=== PATIENT | female | born 1995 | race Caucasian/White ===

== ENCOUNTER 2019-06-18 01:36 | Inpatient (IN) ==
[2019-06-18 02:07] LABS: URINE SOURCE VOIDED
[2019-06-18 02:08] LABS: BILIRUBIN URINE NEGATIVE (NEGATIVE); BLOOD URINE 3+ (NEGATIVE); CLARITY CLEAR (CLEAR); COLOR YELLOW; GLUCOSE URINE NEGATIVE (NEGATIVE); KETONE URINE TRACE mg/dL (NEGATIVE); LEUKOCYTES URINE 2+ (NEGATIVE); NITRITE URINE NEGATIVE (NEGATIVE); PROTEIN URINE TRACE mg/dL (NEGATIVE); UROBILINOGEN URINE NORMAL
[2019-06-18 02:28] LABS: UR AMPHETAMINES QUAL NONE DETECTED (NONE DETECT); UR BARBITUATES QUAL NONE DETECTED (NONE DETECT); UR BENZODIAZEPIN QUAL NONE DETECTED (NONE DETECT); UR CANNABINOIDS QUAL NONE DETECTED (NONE DETECT); UR COCAINE QUAL NONE DETECTED (NONE DETECT); UR METHADONE QUAL NONE DETECTED (NONE DETECT); UR METHAMPHETAMINE QUAL NONE DETECTED (NONE DETECT); UR OPIATES QUAL NONE DETECTED (NONE DETECT); UR OXYCODONE QUAL NONE DETECTED (NONE DETECT); UR PCP QUAL NONE DETECTED (NONE DETECT); UR PROPOXYPHENE QUAL NONE DETECTED (NONE DETECT); UR TCA QUAL NONE DETECTED (NONE DETECT)
[2019-06-18] MEDS ORDERED: FENTANYL IV ONE (03:37)
[2019-06-18] MEDS ORDERED: LR 1,000 ML IV SCH ×2 (03:45→07:00)
[2019-06-18] MEDS ORDERED: NUBAIN IV ONE (05:05)
[2019-06-18 06:25] LABS: BASO# 0.03 X1000 (0.0-0.2); BASO% 0.2 % (0.0-0.8); EOS# 0.07 X1000 (0.0-0.7); EOS% 0.5 % (0.0-10.0); HEMATOCRIT 33.3 % (37.0-47.0); HEMOGLOBIN 10.9 g/dL (12.0-16.0); IMM GRAN% 0.7 % (0.0-0.5); LYMPH% 19.3 % (20.5-51.1); MCH 27.2 PG (27-31); MCHC 32.7 g/dL (33-37); MONO# 0.97 X1000 (0.11-0.59); MONO% 6.5 % (1.7-9.3); MPV 12.4 FL (7.4-10.4); NEUT# 10.96 X1000 (1.4-6.5); NEUT% 72.8 % (42.2-75.2); PLT 124 X1000 (130-400); RBC 4.01 XMIL (4.2-5.4); RDW 14.2 % (11.5-14.5); WBC 15.03 X1000 (4.8-10.8)
[2019-06-18] MEDS ORDERED: REGLAN PO ONE (06:55)
[2019-06-18] MEDS ORDERED: PEPCID PO ONE (06:55)
[2019-06-18] MEDS ORDERED: PEPCID PO PRN (06:55)
[2019-06-18] MEDS ORDERED: TYLENOL PO PRN (06:55)
[2019-06-18] MEDS ORDERED: KEFZOL 1 GM/D5W 1 GM/50 ML IVPB IV PRN (06:55)
[2019-06-18] MEDS ORDERED: PEPCID IV PRN (06:55)
[2019-06-18] MEDS ORDERED: STADOL IV PRN (06:55)
[2019-06-18] MEDS ORDERED: ZOFRAN IV PRN (06:55)
[2019-06-18] MEDS ORDERED: SODIUM CHLORIDE 0.9% INJ SCH (07:00)
[2019-06-18] MEDS ORDERED: FENTANYL IV PRN (07:03)
[2019-06-18] MEDS ORDERED: MINERAL OIL MISC ONE (07:11)
[2019-06-18] MEDS ORDERED: XYLOCAINE-MPF 1% INJ ONE (07:11)
[2019-06-18] MEDS ORDERED: MARCAINE 0.25% PF INJ ONE ×2 (07:15)
[2019-06-18] MEDS: PITOCIN 30 UNITS/NS 30 UNIT/500 ML IV.SOLN IV SCH ×2 (07:42→09:25)
[2019-06-18] MEDS ORDERED: FENTANYL-BUPIV-NS 2 MCG-0.1% 250 ML EPIDURAL SCH ×2 (08:00)
[2019-06-18] MEDS ORDERED: PITOCIN 20 UNITS/NS 20 UNITS/1,000 ML IV.SOLN ONE (12:36)
[2019-06-18] MEDS ORDERED: BENADRYL IV PRN (12:46)
[2019-06-18] MEDS ORDERED: PITOCIN IM PRN (12:46)
[2019-06-18] MEDS ORDERED: BENADRYL PO PRN (12:46)
[2019-06-18] MEDS ORDERED: CYTOTEC PO PRN (12:46)
[2019-06-18] MEDS ORDERED: AMBIEN PO PRN (12:46)
[2019-06-18] MEDS ORDERED: M-M-R II VACCINE SUBQ ONE (12:46)
[2019-06-18] MEDS ORDERED: BOOSTRIX VACCINE IM ONE (12:46)
[2019-06-18] MEDS ORDERED: HYDROXYZINE IM PRN (12:46)
[2019-06-18] MEDS ORDERED: MINERAL OIL PO PRN (12:46)
[2019-06-18] MEDS ORDERED: ATARAX PO PRN (12:46)
[2019-06-18] MEDS ORDERED: PITOCIN 20 UNITS/NS 20 UNITS/1,000 ML IV.SOLN IV SCH (13:00)
[2019-06-18] MEDS ORDERED: PITOCIN 30 UNITS/NS 30 UNIT/500 ML IV.SOLN IV SCH (13:00)
[2019-06-18] MEDS ORDERED: TORADOL IV SCH (14:30)
[2019-06-18] MEDS: PERI MEDS (DERMOPLAST/NUPERCAINAL/TUCKS) MISC PRN (14:49)
[2019-06-18] MEDS: NORCO-10 PO PRN ×2 (15:52→20:43)
[2019-06-18] MEDS: MOTRIN PO SCH (20:43)
[2019-06-18] MEDS: PERICOLACE PO SCH (20:43)
[2019-06-18] MEDS: SUBUTEX SL SCH (22:11)
[2019-06-19] MEDS: MOTRIN PO SCH ×3 (04:39→20:40)
[2019-06-19] MEDS: NORCO-10 PO PRN ×3 (04:39→20:46)
[2019-06-19 06:12] LABS: HEMATOCRIT 24.3 % (37.0-47.0); HEMOGLOBIN 7.7 g/dL (12.0-16.0); MCH 26.6 PG (27-31); MCHC 31.7 g/dL (33-37); MCV 84.1 FL (81-99); MPV 12.1 FL (7.4-10.4); RBC 2.89 XMIL (4.2-5.4); RDW 14.2 % (11.5-14.5); WBC 12.99 X1000 (4.8-10.8)
[2019-06-19] MEDS: PRECARE PO SCH (09:56)
[2019-06-19] MEDS: VITAMIN C PO SCH ×2 (09:57→20:40)
[2019-06-19] MEDS: FERROUS SULFATE PO SCH ×2 (09:57→20:41)
[2019-06-19] MEDS: SUBUTEX SL SCH ×2 (09:58→20:42)
[2019-06-19] MEDS ORDERED: SUBUTEX SL ONE (11:00)
[2019-06-19] MEDS: PERI MEDS (DERMOPLAST/NUPERCAINAL/TUCKS) MISC PRN (17:38)
[2019-06-19] MEDS: PERICOLACE PO SCH (20:40)
[2019-06-20] MEDS: MOTRIN PO SCH (07:17)
[2019-06-20] MEDS: FERROUS SULFATE PO SCH (08:32)
[2019-06-20] MEDS: VITAMIN C PO SCH (08:32)
[2019-06-20] MEDS: PRECARE PO SCH (08:32)
[2019-06-20] MEDS: SUBUTEX SL SCH (08:33)
[2019-06-20 09:11] VITALS: BP 140/85
[2019-06-20] MEDS: NORCO-10 PO PRN (10:00)
== END 2019-06-20 15:08 | disposition home or self-care (01) ==
LOC: P.OPLD 01:36 → P.LD 01:37
PROVIDERS: ADMIT Obstetrics & Gynecology Obstetrics; ATTEND Obstetrics & Gynecology Obstetrics